=== PATIENT | female | born 1955 | race Caucasian/White ===

== ENCOUNTER 2016-12-26 07:18 | Day surgery (SDC) | payer BC ==
[~2016-12-26] VITALS: Ht 170.2 cm; Wt 97.5 kg
[~2016-12-26 07:18] MED LIST: CLINDAMYCIN 600 mg/50mL D5W 50 ML IV ONE
[2016-12-26 07:54] VITALS: O2SAT 99
[2016-12-26] MEDS ORDERED: LR 1,000 ML IV SCH (08:22)
[2016-12-26] MEDS ORDERED: MORPHINE 4 MG/ML INJ. SYRINGE IVP PRN ×3 (08:30)
[2016-12-26] MEDS ORDERED: METOCLOPRAMIDE HCL 10 MG/2 ML VIAL IVP PRN (08:30)
[2016-12-26] MEDS ORDERED: HYDROcodone/ACETAMIN 5-325 MG TAB (NORCO/ VICODIN) PO PRN ×2 (08:45)
[2016-12-26] MEDS ORDERED: HYDROmorphone 1 MG INJ. 1 MG/ML AMPUL IVP PRN (08:45)
[2016-12-26] MEDS ORDERED: D5/0.45 NS 1,000 ML IV SCH (11:30)
[2016-12-26] MEDS ORDERED: SEVOFLURANE 15 MIN GAS INH ONE (14:00)
[2016-12-26] MEDS ORDERED: NS 1000 ML BAG IV ONE (14:00)
[2016-12-26] MEDS ORDERED: PROPOFOL 200MG/ 20ML VIAL (DIPRIVAN) IV ONE (14:00)
[2016-12-26] MEDS ORDERED: ROCURONIUM BROMIDE 10 MG/ML (ZEMURON) ONE (14:00)
[2016-12-26] MEDS ORDERED: ONDANSETRON HCL 4 MG/2 ML VIAL ONE (14:00)
[2016-12-26] MEDS ORDERED: CLINDAMYCIN PHOSPHATE 600 mg/50mL D5W IV ONE (14:00)
[2016-12-26] MEDS ORDERED: fentaNYL CITRATE/PF 100 MCG/2 ML AMP ONE (14:00)
[2016-12-26] MEDS ORDERED: MIDAZOLAM HCL 5 MG/5 ML VIAL ONE (14:00)
[2016-12-26] MEDS ORDERED: LR 1,000 ML IV.SOLN IV ONE (14:00)
== END 2016-12-26 10:25 | disposition home or self-care (01) ==
LOC: SDS 07:18 → SMU 07:19 → SDS 10:25
PROVIDERS: ATTEND Colon & Rectal Surgery
DX: C50.911 Malignant neoplasm of unspecified site of right female breast (principal); Z87.891 Personal history of nicotine dependence
CPT/HCPCS: 36561; 71010; 76000; C1788; C1894; J2250; J2405; J2704; J3010; J3490; J7030; J7120